=== PATIENT | female | born 1945 | race Caucasian/White ===

== ENCOUNTER → 2019-08-01 10:40 | Outpatient (BNVA) | payer MEDICARE, MEDICAID, SELFPAY | PROVIDERS: Family Provider Nurse Practitioner; PCP Nurse Practitioner; Visit Provider Nurse Practitioner | DX: E03.8 Other specified hypothyroidism (principal); I10 Essential (primary) hypertension; J30.1 Allergic rhinitis due to pollen; Z98.890 Other specified postprocedural states | CPT/HCPCS: 80053; 83540; 83550; 84443 ==

== ENCOUNTER → 2020-02-06 09:20 | Outpatient (BNVA) | payer MEDICARE, MEDICAID, SELFPAY | PROVIDERS: Family Provider Nurse Practitioner; PCP Nurse Practitioner; Visit Provider Nurse Practitioner | DX: I10 Essential (primary) hypertension (principal) | CPT/HCPCS: 80053; 80061; 84443 ==

== ENCOUNTER → 2020-07-30 11:43 | Outpatient (BNVA) | payer MEDICARE, MEDICAID, SELFPAY | PROVIDERS: Family Provider Nurse Practitioner; PCP Nurse Practitioner; Visit Provider Nurse Practitioner | DX: I10 Essential (primary) hypertension (principal); J30.1 Allergic rhinitis due to pollen; Z71.89 Other specified counseling; E03.8 Other specified hypothyroidism; Z98.890 Other specified postprocedural states | CPT/HCPCS: 80053; 80061; 81003; 84443 ==

== ENCOUNTER → 2020-11-05 08:40 | Outpatient (BNVA) | payer MEDICARE, MEDICAID, SELFPAY | PROVIDERS: Family Provider Nurse Practitioner; PCP Nurse Practitioner; Visit Provider Nurse Practitioner | DX: I10 Essential (primary) hypertension (principal) | CPT/HCPCS: 80048 ==

== ENCOUNTER → 2021-02-04 10:37 | Outpatient (BNVA) | payer MEDICARE, MEDICAID, SELFPAY | PROVIDERS: Family Provider Nurse Practitioner; PCP Nurse Practitioner; Visit Provider Nurse Practitioner | DX: I10 Essential (primary) hypertension (principal); Z71.89 Other specified counseling; J30.1 Allergic rhinitis due to pollen; Z98.890 Other specified postprocedural states; E87.1 Hypo-osmolality and hyponatremia; E03.8 Other specified hypothyroidism | CPT/HCPCS: 80053; 84443; 85025 ==

== ENCOUNTER → 2021-08-05 10:30 | Outpatient (BNVA) | payer MEDICARE, MEDICAID, SELFPAY | PROVIDERS: Family Provider Nurse Practitioner; PCP Nurse Practitioner; Visit Provider Nurse Practitioner | DX: J30.1 Allergic rhinitis due to pollen (principal); Z78.9 Other specified health status; Z98.890 Other specified postprocedural states; I10 Essential (primary) hypertension; M79.10 Myalgia, unspecified site; E03.8 Other specified hypothyroidism | CPT/HCPCS: 80053; 80061; 84443; 85025 ==

== ENCOUNTER → 2022-02-03 10:35 | Outpatient (BNVA) | payer MEDICARE, MEDICAID, SELFPAY | PROVIDERS: Family Provider Nurse Practitioner; PCP Nurse Practitioner; Visit Provider Nurse Practitioner | DX: J30.1 Allergic rhinitis due to pollen (principal); I10 Essential (primary) hypertension; Z78.9 Other specified health status; E03.8 Other specified hypothyroidism; M79.10 Myalgia, unspecified site; E87.1 Hypo-osmolality and hyponatremia; Z98.890 Other specified postprocedural states | CPT/HCPCS: 80053; 84443 ==

== ENCOUNTER → 2022-08-04 10:01 | Outpatient (BNVA) | payer MEDICARE, MEDICAID, SELFPAY | PROVIDERS: Family Provider Nurse Practitioner; PCP Nurse Practitioner; Visit Provider Nurse Practitioner | DX: J30.1 Allergic rhinitis due to pollen (principal); I10 Essential (primary) hypertension; Z78.9 Other specified health status; E03.8 Other specified hypothyroidism; M79.10 Myalgia, unspecified site; E87.1 Hypo-osmolality and hyponatremia; Z98.890 Other specified postprocedural states | CPT/HCPCS: 80053; 80061; 81000; 84443; 85025 ==

== ENCOUNTER → 2023-02-02 10:30 | Outpatient (BNVA) | payer MEDICARE, MEDICAID, SELFPAY | PROVIDERS: Family Provider Nurse Practitioner; PCP Nurse Practitioner; Visit Provider Nurse Practitioner | DX: E03.8 Other specified hypothyroidism (principal); I10 Essential (primary) hypertension; J30.1 Allergic rhinitis due to pollen; Z78.9 Other specified health status; M79.10 Myalgia, unspecified site; Z98.890 Other specified postprocedural states; Z79.899 Other long term (current) drug therapy | CPT/HCPCS: 80053; 80061; 84443 ==

== ENCOUNTER → 2023-08-03 10:44 | Outpatient (BNVA) | payer MEDICARE, MEDICAID, SELFPAY | PROVIDERS: Family Provider Nurse Practitioner; PCP Nurse Practitioner; Visit Provider Nurse Practitioner | DX: E03.8 Other specified hypothyroidism; I10 Essential (primary) hypertension | CPT/HCPCS: 80053; 80061; 84443; 85025 ==

== ENCOUNTER → 2024-02-01 10:03 | Outpatient (BNVA) | payer MEDICARE, MEDICAID, SELFPAY | PROVIDERS: Family Provider Nurse Practitioner; PCP Nurse Practitioner; Visit Provider Nurse Practitioner | DX: I10 Essential (primary) hypertension (principal); E03.8 Other specified hypothyroidism | CPT/HCPCS: 80053; 80061; 82306; 82607; 84443 ==

== ENCOUNTER → 2024-06-06 10:19 | Outpatient (BNVA) | payer MEDICARE, MEDICAID, SELFPAY | PROVIDERS: Family Provider Nurse Practitioner; PCP Nurse Practitioner; Visit Provider Nurse Practitioner | DX: I10 Essential (primary) hypertension (principal); E03.8 Other specified hypothyroidism; J30.1 Allergic rhinitis due to pollen; M79.10 Myalgia, unspecified site; Z98.890 Other specified postprocedural states; E87.1 Hypo-osmolality and hyponatremia; Z79.899 Other long term (current) drug therapy | CPT/HCPCS: 80053; 80061; 84443; 85025 ==

== ENCOUNTER → 2024-10-31 10:44 | Outpatient (BNVA) | payer MEDICARE, MEDICAID, SELFPAY | PROVIDERS: Family Provider Nurse Practitioner; PCP Nurse Practitioner; Visit Provider Nurse Practitioner | DX: J30.1 Allergic rhinitis due to pollen (principal); E03.8 Other specified hypothyroidism; I10 Essential (primary) hypertension; M79.10 Myalgia, unspecified site; Z98.890 Other specified postprocedural states; E87.1 Hypo-osmolality and hyponatremia | CPT/HCPCS: 80053; 80061; 85025 ==

== ENCOUNTER → 2025-05-01 10:35 | Outpatient (BNVA) | payer MEDICARE, MEDICAID, SELFPAY | PROVIDERS: Family Provider Nurse Practitioner; PCP Nurse Practitioner; Visit Provider Nurse Practitioner | DX: E55.9 Vitamin D deficiency, unspecified (principal); I10 Essential (primary) hypertension; E03.8 Other specified hypothyroidism | CPT/HCPCS: 80053; 80061; 82306; 82607; 84443; 85025 ==